=== PATIENT | female | born 1945 | race African-American/Black ===

== ENCOUNTER 2018-04-02 10:30 | Emergency (ER) | payer MEDICARE, OTHER ==
[~2018-04-02] VITALS: Ht 154.9 cm; Wt 73.0 kg
[2018-04-02 12:15] LABS: ALANINE AMINOTRANSFERASE 18 U/L (12-78); ALBUMIN 3.6 g/dL (3.4-5.0); ANION GAP 9 mmol/L (5-15); CALCIUM 9.3 mg/dL (8.5-10.1); CHLORIDE 102 mmol/L (98-107); CREATININE 0.84 mg/dL (0.55-1.02)
[2018-04-02 12:16] LABS: BASOPHILS # (AUTO) 0.02 x10^3/uL (0-0.1); BASOPHILS % (AUTO) 0 % (0-1); EOSINOPHILS # (AUTO) 0.05 x10^3/uL (0-0.4); EOSINOPHILS % (AUTO) 1 % (1-7); LYMPHOCYTES % (AUTO) 42 % (22-44); MD NO; MEAN CORPUSCULAR HEMOGLOBIN 24.9 pg (27.0-34.8); MEAN CORPUSCULAR HGB CONC 31.9 g/dL (32.4-35.8); MEAN CORPUSCULAR VOLUME 77.9 fL (80-100); MEAN PLATELET VOLUME 7.8 fL (7.4-10.4); MONOCYTES # (AUTO) 0.37 x10^3/uL (0.2-0.8); MONOCYTES % (AUTO) 9 % (2-9); NEUTROPHILS # (AUTO) 2.09 x10^3/uL (1.8-6.8); NEUTROPHILS % (AUTO) 48 % (42-75); PLATELET COUNT 393 x10^3/uL (130-400); RED BLOOD COUNT 5.21 x10^6/uL (3.82-5.3)
[2018-04-02 12:19] LABS: ALKALINE PHOSPHATASE 76 U/L (45-117); BILIRUBIN,TOTAL 0.4 mg/dL (0.2-1.0); TOTAL PROTEIN 7.4 g/dL (6.4-8.2); TROPONIN I < 0.015 ng/mL (0.000-0.045)
[2018-04-02 13:29] VITALS: BP 165/74
[2018-04-02] MEDS ORDERED: TRIA1CAP3 PO (15:30)
[2018-04-02] MEDS ORDERED: ASPI-496 PO (15:30)
[2018-04-02] MEDS ORDERED: LORA0.5T PO (15:30)
[2018-04-02] MEDS ORDERED: RANI150C PO (15:30)
[2018-04-02] MEDS ORDERED: METF500T17 PO (15:30)
[2018-04-02] MEDS ORDERED: GABA800T2 PO (15:30)
[2018-04-02] MEDS ORDERED: PANT40TA3 PO (15:30)
[2018-04-02] MEDS ORDERED: FLUT9.9S NAS (15:30)
== END 2018-04-02 13:32 | disposition home or self-care (01) ==
LOC: ED 11:59
DX: M25.562 Pain in left knee (principal); K21.9 Gastro-esophageal reflux disease without esophagitis; E11.9 Type 2 diabetes mellitus without complications; I10 Essential (primary) hypertension; E78.5 Hyperlipidemia, unspecified
CPT/HCPCS: 29505; 36415; 80053; 84484; 85025; 93005; 99285

== ENCOUNTER 2019-06-17 18:00 | Emergency (ER) | payer MEDICARE, OTHER ==
[~2019-06-17] VITALS: Ht 154.9 cm; Wt 76.1 kg
[~2019-06-17 18:00] MED LIST: ASPI-496 PO; CETI10TA32 PO; EZET10TA70 PO; FLUT9.9S NAS; GABA800T5 PO; LORA-445 PO; LORA0.5T PO; METF500T17 PO; PANT40TA3 PO; POTA8TAB46 PO; PROP20TA PO; RANI150C PO; TRIA1CAP3 PO
[2019-06-17] MEDS ORDERED: LORazepam 2 MG/ML, 1ML IV ONE (18:30)
[2019-06-17] MEDS ORDERED: SODIUM CHLORIDE FLUSH 10ML SYR IVF ONE (18:30)
[2019-06-17] MEDS ORDERED: LORazepam 2 MG/ML, 1ML ONE (18:35)
[2019-06-17 19:06] LABS: BASOPHILS # (AUTO) 0.02 x10^3/uL (0-0.1); BASOPHILS % (AUTO) 0 % (0-1); EOSINOPHILS # (AUTO) 0.05 x10^3/uL (0-0.4); EOSINOPHILS % (AUTO) 1 % (1-7); LYMPHOCYTES % (AUTO) 42 % (22-44); MD NO; MEAN CORPUSCULAR HEMOGLOBIN 26.3 pg (27.0-34.8); MEAN CORPUSCULAR HGB CONC 31.4 g/dL (32.4-35.8); MEAN CORPUSCULAR VOLUME 83.7 fL (80-100); MONOCYTES # (AUTO) 0.45 x10^3/uL (0.2-0.8); MONOCYTES % (AUTO) 8 % (2-9); NEUTROPHILS # (AUTO) 2.65 x10^3/uL (1.8-6.8); NEUTROPHILS % (AUTO) 48 % (42-75); PLATELET COUNT 329 x10^3/uL (130-400); RED BLOOD COUNT 5.14 x10^6/uL (3.82-5.3); RED CELL DISTRIBUTION WIDTH 15.4 % (9.6-15.2)
[2019-06-17 19:15] LABS: ALANINE AMINOTRANSFERASE 19 U/L (12-78); ANION GAP 5 mmol/L (5-15); CALCIUM 9.5 mg/dL (8.5-10.1); CHLORIDE 106 mmol/L (98-107); CREATININE 0.81 mg/dL (0.55-1.02)
[2019-06-17 19:20] LABS: ALKALINE PHOSPHATASE 64 U/L (45-117); BILIRUBIN,TOTAL 0.4 mg/dL (0.2-1.0); TOTAL PROTEIN 7.8 g/dL (6.4-8.2); TROPONIN I < 0.015 ng/mL (0.000-0.045)
[2019-06-17 19:59] VITALS: BP 142/88
== END 2019-06-17 20:03 | disposition home or self-care (01) ==
LOC: ED 19:57
DX: R06.00 Dyspnea, unspecified (principal); F41.1 Generalized anxiety disorder; I10 Essential (primary) hypertension; E78.5 Hyperlipidemia, unspecified; K21.9 Gastro-esophageal reflux disease without esophagitis; Z87.891 Personal history of nicotine dependence; E11.9 Type 2 diabetes mellitus without complications
CPT/HCPCS: 36415; 71046; 80053; 83880; 84484; 85025; 93005; 96374; 99284; J2060

== ENCOUNTER 2019-07-07 08:38 | Outpatient (CLI) | payer MEDICARE, OTHER | END 2019-07-07 23:59 | disposition home or self-care (01) | LOC: PETCFH 08:38 | PROVIDERS: ATTEND Registered Nurse | DX: R91.1 Solitary pulmonary nodule (principal); R93.89 Abnormal findings on diagnostic imaging of other specified body structures; K21.0 Gastro-esophageal reflux disease with esophagitis; Z80.1 Family history of malignant neoplasm of trachea, bronchus and lung; Z87.891 Personal history of nicotine dependence | CPT/HCPCS: 78815; A9552 ==

== ENCOUNTER 2019-07-18 08:00 | Outpatient (CLI) | payer MEDICARE, OTHER ==
[2019-07-18] MEDS ORDERED: TRIA1CAP3 PO (14:45)
[2019-07-18] MEDS ORDERED: FAMO-79 PO (14:45)
== END 2019-07-18 23:59 | disposition home or self-care (01) ==
LOC: STAR 08:00
PROVIDERS: ATTEND Urology
DX: Z01.818 Encounter for other preprocedural examination (principal); R31.0 Gross hematuria; R00.0 Tachycardia, unspecified
CPT/HCPCS: 93005

== ENCOUNTER 2019-07-18 10:41 | Emergency (ER) | payer MEDICARE, OTHER ==
[~2019-07-18] VITALS: Ht 154.9 cm; Wt 72.7 kg
[2019-07-18 11:07] VITALS: BP 154/96
[2019-07-18 12:39] LABS: MICROSCOPIC AUTO
[2019-07-18 12:45] LABS: CULTURE INDICATED? YES
[2019-07-18] MEDS ORDERED: ACETAMINOPHEN 325 MG TABLET PO ONE (13:00)
[2019-07-18] MEDS ORDERED: ACETAMINOPHEN 325 MG TABLET ONE (13:06)
[2019-07-18] MEDS ORDERED: TRIA1CAP3 PO (14:45)
[2019-07-18] MEDS ORDERED: FAMO-79 PO (14:45)
== END 2019-07-18 13:17 | disposition home or self-care (01) ==
LOC: ED 13:11
DX: S39.012A Strain of muscle, fascia and tendon of lower back, initial encounter (principal); R31.9 Hematuria, unspecified; I10 Essential (primary) hypertension; E11.9 Type 2 diabetes mellitus without complications; E78.5 Hyperlipidemia, unspecified; K21.9 Gastro-esophageal reflux disease without esophagitis; X58.XXXA Exposure to other specified factors, initial encounter; Y93.89 Activity, other specified; Y92.89 Other specified places as the place of occurrence of the external cause; Y99.8 Other external cause status
CPT/HCPCS: 72110; 72190; 81001; 87086; 99284

== ENCOUNTER 2019-07-21 05:19 | Day surgery (SDC) | payer MEDICARE, OTHER ==
[~2019-07-21] VITALS: Ht 154.9 cm; Wt 72.7 kg
[~2019-07-21 05:19] MED LIST changes: +FAMO-79 PO
[2019-07-21] MEDS ORDERED: LACTATED RINGERS 1,000 ML IV SCH (06:24)
[2019-07-21 06:28] VITALS: BP 128/81
[2019-07-21] MEDS ORDERED: FENTANYL PF 100 MCG/2ML ONE ×2 (07:28→08:32)
[2019-07-21] MEDS ORDERED: PHENAZOPYRIDINE 200 MG TABLET PO ONE (08:30)
[2019-07-21] MEDS ORDERED: ACETAMINOPHEN 325 MG TABLET PO PRN (08:30)
[2019-07-21] MEDS ORDERED: ALBUTEROL SULFATE 2.5 MG/3 ML NPPB PRN (08:30)
[2019-07-21] MEDS ORDERED: hydrALAzine 20 MG/ML, 1ML IV PRN (08:30)
[2019-07-21] MEDS ORDERED: LABETALOL 5MG/ML, 20ML IV PRN (08:30)
[2019-07-21] MEDS ORDERED: HYDROmorphone 2 MG/ML, 1ML IVPush PRN (08:30)
[2019-07-21] MEDS ORDERED: PHENAZOPYRIDINE 200 MG TABLET ONE (08:31)
[2019-07-21] MEDS ORDERED: ACETAMINOPHEN 650 MG/20.3 ML UDC ONE (08:31)
[2019-07-21] MEDS: FENTANYL PF 100 MCG/2ML IV PRN ×4 (08:37→09:03)
[2019-07-21] MEDS ORDERED: DEXAMETHASONE 4 MG/ML, 1ML ONE (10:46)
[2019-07-21] MEDS ORDERED: PROPOFOL 10 MG/ML, 20ML ONE (10:46)
[2019-07-21] MEDS ORDERED: ONDANSETRON 2MG/ML, 2ML ONE (10:46)
[2019-07-21] MEDS ORDERED: CEFAZOLIN 1,000 MG ONE (10:46)
== END 2019-07-21 11:00 | disposition home or self-care (01) ==
LOC: OUT 05:19
PROVIDERS: ATTEND Urology
DX: N32.9 Bladder disorder, unspecified (principal); N30.10 Interstitial cystitis (chronic) without hematuria; Z79.899 Other long term (current) drug therapy
CPT/HCPCS: 52204; 82962; 88305; J0690; J1100; J2405; J2704; J3010; J7120; 93005

== ENCOUNTER 2020-05-14 16:16 | Inpatient (IN) | payer MEDICARE, OTHER ==
[~2020-05-14] VITALS: Ht 154.9 cm; Wt 66.4 kg
--- NOTE | 2020-05-14 16:41 | NUR ---
PT AMBULATES WELL TO BATHROOM WITH ONE PERSON ESCORT. GIVEN UA CUP.
[2020-05-14] MEDS ORDERED: D3 PO (16:52)
[2020-05-14] MEDS ORDERED: HYDR-826 PO (16:52)
[2020-05-14] MEDS ORDERED: CALC-126 PO (16:52)
[2020-05-14] MEDS ORDERED: ALBUTEROL (16:52)
[2020-05-14] MEDS ORDERED: D-MANNOSE PO (16:52)
[2020-05-14] MEDS ORDERED: METH750T2 PO (16:52)
[2020-05-14] MEDS ORDERED: B 12 PO (16:52)
[2020-05-14] MEDS ORDERED: LOSA50TA14 PO (16:52)
[2020-05-14] MEDS ORDERED: FERR324T5 PO (16:52)
[2020-05-14] MEDS ORDERED: FOLATE PO (16:52)
[2020-05-14] MEDS ORDERED: CETI10TA18 PO (16:52)
[2020-05-14] MEDS ORDERED: ALBU1.25 NEB (16:52)
--- NOTE | 2020-05-14 17:40 | NUR ---
DISCUSSION WITH ERMD REGARDING PT'S PAIN LEVEL. AWAITING FURTHER ORDERS. PT RESPIRATIONS EVEN AND UNLABORED ON RA. SON AT BEDSIDE.
[2020-05-14 18:11] LABS: BASOPHILS % (AUTO) 1 % (0-1); EOSINOPHILS % (AUTO) 1 % (1-7); LYMPHOCYTES % (AUTO) 43 % (22-44); MEAN CORPUSCULAR HEMOGLOBIN 26.8 pg (27.0-34.8); MEAN PLATELET VOLUME 7.3 fL (7.4-10.4); MONOCYTES % (AUTO) 7 % (2-9); NEUTROPHILS % (AUTO) 48 % (42-75); PLATELET COUNT 342 x10^3/uL (130-400); RED BLOOD COUNT 4.88 x10^6/uL (3.82-5.3); RED CELL DISTRIBUTION WIDTH 15.5 % (9.6-15.2)
[2020-05-14 18:12] LABS: HCT (SEDRATE) 40.6 % (34.6-47.8)
[2020-05-14 18:19] LABS: ALANINE AMINOTRANSFERASE 17 U/L (12-78); ALBUMIN 3.8 g/dL (3.4-5.0); ANION GAP 4 mmol/L (5-15); C-REACTIVE PROTEIN, QUANT 0.58 mg/dL (0.02-0.49); CHLORIDE 108 mmol/L (98-107); CREATININE 0.64 mg/dL (0.55-1.02)
[2020-05-14 18:22] LABS: MD NO
[2020-05-14 18:23] LABS: ALKALINE PHOSPHATASE 63 U/L (45-117); BILIRUBIN,TOTAL 0.3 mg/dL (0.2-1.0); TOTAL PROTEIN 7.2 g/dL (6.4-8.2); TROPONIN I < 0.015 ng/mL (0.000-0.045)
[2020-05-14] MEDS ORDERED: ONDANSETRON 2MG/ML, 2ML ONE (18:40)
[2020-05-14] MEDS ORDERED: MORPHINE SULFATE 4 MG/ML, 1ML ONE (18:41)
--- NOTE | 2020-05-14 18:48 | NUR ---
ERMD IN TO REASSESS PT
[2020-05-14] MEDS ORDERED: ONDANSETRON 2MG/ML, 2ML IVPush ONE (19:00)
[2020-05-14] MEDS ORDERED: MORPHINE SULFATE 4 MG/ML, 1ML IVPush PRN (19:00)
[2020-05-14] MEDS ORDERED: KETOROLAC 30 MG/1 ML IVPush ONE (19:00)
[2020-05-14] MEDS ORDERED: ASPIRIN 81 MG TABLET CHEW PO ONE (19:00)
--- NOTE | 2020-05-14 19:23 | NUR ---
REPORT TO LISA ALEJANDRE. PT RECLINED IN BED, ADMITTING HOSPITALIST IN TO ASSESS PT. PT C/O NAUSEA AND EPIGASTRIC PAIN FOLLOWING MORPHINE ADMINISTRATION GRADUALLY WORSENING. AWAITING FURTHER ORDERS AT THIS TIME.
[2020-05-14] MEDS ORDERED: MAALOX/HYOSCYAMINE/LIDOCAINE 45 ML BTL ONE (19:28)
--- NOTE | 2020-05-14 19:30 | NUR ---
TASK RN: PT REFUSING ASPIRIN AT THIS TIME, STATES SHE CAN ONLY HAVE COATED ASPIRIN. ED MD AWARE.
--- NOTE | 2020-05-14 19:55 | NUR ---
PT AMBULATES TO BATHROOM WITH RN ESCORT. PT SITTING UP IN BED AGAIN. SON AT BEDSIDE.
[2020-05-14] MEDS ORDERED: ENALAPRILAT 1.25 MG/ML, 2ML IV PRN (20:00)
[2020-05-14] MEDS ORDERED: ALBUTEROL HFA 90 MCG/SPRAY INH PRN (20:00)
[2020-05-14] MEDS ORDERED: DOCUSATE 100 MG CAPSULE PO PRN (20:00)
[2020-05-14] MEDS ORDERED: ONDANSETRON 2MG/ML, 2ML IVPush PRN (20:00)
[2020-05-14] MEDS ORDERED: DIPHENHYDRAMINE 25 MG CAPSULE PO PRN (20:00)
[2020-05-14 20:23] VITALS: BP 160/74
[2020-05-14] MEDS ORDERED: MAALOX/HYOSCYAMINE/LIDOCAINE 45 ML BTL PO ONE ×2 (20:30→21:30)
[2020-05-14 20:39] VITALS: BP 160/74
[2020-05-14 21:47] LABS: TROPONIN I < 0.015 ng/mL (0.000-0.045)
[2020-05-14] MEDS: METHOCARBAMOL 750 MG TABLET PO SCH (23:19)
[2020-05-14] MEDS: metFORMIN 500 MG TABLET PO SCH (23:19)
[2020-05-14] MEDS: FERROUS SULFATE 325 MG TABLET PO SCH (23:19)
[2020-05-15 01:19] VITALS: BP 149/72
[2020-05-15 04:22] VITALS: BP_SYST 108; BP_SYST 126; BP_DIAS 63; BP_DIAS 72
[2020-05-15] MEDS: ACETAMINOPHEN 650 MG/20.3 ML UDC PO PRN ×2 (04:32→15:55)
[2020-05-15 05:45] LABS: BASOPHILS % (AUTO) 1 % (0-1); EOSINOPHILS % (AUTO) 1 % (1-7); LYMPHOCYTES % (AUTO) 53 % (22-44); MEAN CORPUSCULAR HEMOGLOBIN 26.7 pg (27.0-34.8); MEAN PLATELET VOLUME 7.5 fL (7.4-10.4); MONOCYTES % (AUTO) 9 % (2-9); NEUTROPHILS % (AUTO) 36 % (42-75); PLATELET COUNT 340 x10^3/uL (130-400); RED BLOOD COUNT 4.61 x10^6/uL (3.82-5.3); RED CELL DISTRIBUTION WIDTH 15.8 % (9.6-15.2)
[2020-05-15 05:49] LABS: MD NO
[2020-05-15 05:56] LABS: ANION GAP 4 mmol/L (5-15); CALCIUM 8.8 mg/dL (8.5-10.1); CHLORIDE 106 mmol/L (98-107); CREATININE 0.74 mg/dL (0.55-1.02)
[2020-05-15 06:01] LABS: CHOLESTEROL, TOTAL 179 mg/dL (140-239); HDL CHOL % 51 % (28-40); HDL CHOLESTEROL (DIRECT) 91 mg/dL (40-60); LDL CHOLESTEROL,CALCULATED 72 mg/dL (54-169); LDL/HDL RATIO 0.8 (0.5-3.0); TRIGLYCERIDES 81 mg/dL (50-200); TROPONIN I < 0.015 ng/mL (0.000-0.045); VLDL CHOLESTEROL 16 mg/dL (0-25)
[2020-05-15 07:29] VITALS: BP 137/68
[2020-05-15] MEDS ORDERED: LORazepam 2 MG/ML, 1ML IVPush ONE (08:00)
[2020-05-15] MEDS ORDERED: FAMOTIDINE 40 MG TABLET ONE (08:20)
[2020-05-15] MEDS: FAMOTIDINE 20 MG TABLET PO SCH (09:08)
[2020-05-15] MEDS: LOSARTAN 50MG TABLET PO SCH (09:08)
[2020-05-15] MEDS: CETIRIZINE 10 MG TABLET PO SCH (09:08)
[2020-05-15] MEDS: metFORMIN 500 MG TABLET PO SCH ×2 (09:09→21:02)
[2020-05-15] MEDS: POTASSIUM CHLORIDE 10 MEQ TABLET.ER PO SCH (09:09)
[2020-05-15] MEDS: CALCIUM/VITAMIN D3 250-125 TABLET PO SCH (09:09)
[2020-05-15] MEDS: EZETIMIBE 10 MG TABLET PO SCH (09:09)
[2020-05-15] MEDS: ASPIRIN 81 MG TABLET EC PO SCH (09:09)
[2020-05-15] MEDS: GABAPENTIN 400 MG CAPSULE PO SCH (09:10)
[2020-05-15] MEDS: FLUTICASONE NASAL SPRAY 16GM NAS SCH (09:10)
[2020-05-15 14:17] VITALS: BP 118/70
[2020-05-15 20:41] VITALS: BP 109/69
[2020-05-15] MEDS: FERROUS SULFATE 325 MG TABLET PO SCH (21:02)
[2020-05-15] MEDS: METHOCARBAMOL 750 MG TABLET PO SCH (21:02)
[2020-05-16 02:07] VITALS: BP 124/70
[2020-05-16 08:35] VITALS: BP 152/78
[2020-05-16] MEDS: FAMOTIDINE 20 MG TABLET PO SCH (09:00)
[2020-05-16] MEDS: GABAPENTIN 400 MG CAPSULE PO SCH (09:00)
[2020-05-16] MEDS ORDERED: ACETAMINOPHEN 325 MG TABLET ONE (09:40)
[2020-05-16] MEDS ORDERED: FAMOTIDINE 40 MG TABLET ONE (09:41)
[2020-05-16] MEDS: ACETAMINOPHEN 650 MG/20.3 ML UDC PO PRN (09:48)
[2020-05-16] MEDS: CETIRIZINE 10 MG TABLET PO SCH (09:49)
[2020-05-16] MEDS: metFORMIN 500 MG TABLET PO SCH (09:49)
[2020-05-16] MEDS: ASPIRIN 81 MG TABLET EC PO SCH (09:50)
[2020-05-16] MEDS: EZETIMIBE 10 MG TABLET PO SCH (09:50)
[2020-05-16] MEDS: LOSARTAN 50MG TABLET PO SCH (09:50)
[2020-05-16] MEDS: CALCIUM/VITAMIN D3 250-125 TABLET PO SCH (09:51)
[2020-05-16] MEDS: POTASSIUM CHLORIDE 10 MEQ TABLET.ER PO SCH (09:51)
[2020-05-16 12:16] VITALS: BP 131/75
[2020-05-16] MEDS: FLUTICASONE NASAL SPRAY 16GM NAS SCH (12:22)
== END 2020-05-16 13:09 | disposition home health service (06) | DRG 103 ==
LOC: ED 18:43 → EDIP 18:49 → ED 19:18 → 5SO 20:18 → DCLOUNGE 05-16 12:47
PROVIDERS: ADMIT Internal Medicine; ATTEND Family Medicine
DX: R51.9 Headache, unspecified (principal); I10 Essential (primary) hypertension; E11.9 Type 2 diabetes mellitus without complications; E78.5 Hyperlipidemia, unspecified; J32.3 Chronic sphenoidal sinusitis; J45.909 Unspecified asthma, uncomplicated; K21.9 Gastro-esophageal reflux disease without esophagitis; K30 Functional dyspepsia; G47.33 Obstructive sleep apnea (adult) (pediatric); T50.905A Adverse effect of unspecified drugs, medicaments and biological substances, initial encounter; H53.8 Other visual disturbances; Z83.3 Family history of diabetes mellitus; Z87.891 Personal history of nicotine dependence; Y92.89 Other specified places as the place of occurrence of the external cause; Z88.8 Allergy status to other drugs, medicaments and biological substances; Z88.5 Allergy status to narcotic agent; Z90.49 Acquired absence of other specified parts of digestive tract
CPT/HCPCS: 36415; 70450; 70551; 80048; 80053; 80061; 82962; 83036; 84484; 85025; 85651; 86140; 93005; 93306; 93356; 93880; 96374; 96375; 99291; G0378; J2405; 92523-GN; J2060; J2270; Q0163; Q0177

== ENCOUNTER → 2020-11-27 | Outpatient (CLI) | payer MEDICARE, OTHER ==
[~2020-11-27] MED LIST changes: +ALBU1.25 NEB; +ALBUTEROL; +B 12 PO; +CALC-126 PO; +CETI10TA18 PO; +D-MANNOSE PO; +D3 PO; +FERR324T5 PO; +FOLATE PO; +HYDR-826 PO; +LOSA50TA14 PO; +METH-640 PO; +POTA8TAB PO; -POTA8TAB46 PO
== END | disposition home or self-care (01) ==
LOC: CFH 10:25
PROVIDERS: ATTEND Registered Nurse
DX: R93.89 Abnormal findings on diagnostic imaging of other specified body structures (principal)
CPT/HCPCS: 71250

== ENCOUNTER → 2021-01-08 | Outpatient (CLI) | payer MEDICARE, OTHER | END | disposition home or self-care (01) | LOC: PETCFH 08:39 | PROVIDERS: ATTEND Registered Nurse | DX: R91.1 Solitary pulmonary nodule (principal); R93.89 Abnormal findings on diagnostic imaging of other specified body structures; Z80.1 Family history of malignant neoplasm of trachea, bronchus and lung | CPT/HCPCS: 78815; A9552 ==

== ENCOUNTER → 2021-04-16 | Outpatient (CLI) | payer MEDICARE, OTHER | END | disposition home or self-care (01) | LOC: CFH 09:33 | PROVIDERS: ATTEND Registered Nurse | DX: R91.8 Other nonspecific abnormal finding of lung field (principal); R93.89 Abnormal findings on diagnostic imaging of other specified body structures; R59.0 Localized enlarged lymph nodes | CPT/HCPCS: 71250 ==